=== PATIENT | female | born 1985 | race Caucasian/White ===

== ENCOUNTER 2018-04-01 14:43 | Inpatient (IN) ==
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
[2018-04-01] MEDS ORDERED: Aluminum/Magnesium/Simethacone Susp 30 ML UDC PO PRN (16:13)
[2018-04-01] MEDS ORDERED: Bisacodyl 10 MG Supp RECTAL PRN (16:13)
[2018-04-01 16:45] LABS: Amphetamine Screen,Urine Neg (Neg); Barbiturate Screen,Urine Neg (Neg); Cannabinoid Screen,Urine Neg (Neg); Cocaine Screen,Urine Neg (Neg)
[2018-04-01 16:49] LABS: Opiate Screen,Urine Neg (Neg)
[2018-04-01 19:43] LABS: Baso % (Auto) 0.2 % (0.0-2.0); Eos % (Auto) 0.2 % (0.0-4.0); Hematocrit 42.9 % (35.0-46.0); Hemoglobin 14.8 gm/dL (11.6-15.3); Lymph % (Auto) 44.5 % (9.0-44.0); Mean Corpuscular HGB Conc 34.5 % (32.0-36.0); Mean Corpuscular Hemoglobin 32.6 pg (27.0-34.0); Mean Corpuscular Volume 94.7 fL (80.0-100.0); Mono # (Auto) 0.4 th/mm3 (0.0-0.9); Mono % (Auto) 5.2 % (0.0-8.0); Neut # (Auto) 3.4 th/mm3 (1.8-7.7); Neut % (Auto) 49.9 % (16.0-70.0); Platelet Count 248 th/mm3 (150-450); Red Blood Count 4.53 mil/mm3 (4.00-5.30); Red Cell Distribution Width 12.7 % (11.6-17.2); White Blood Count 6.8 th/mm3 (4.0-11.0)
[2018-04-01 19:56] LABS: Alanine Aminotransferase 23 U/L (10-53); Anion Gap 10 meq/L (5-15); Aspartate Aminotransferase 13 U/L (15-37); Blood Urea Nitrogen 6 mg/dL (7-18); Calcium 9.5 mg/dL (8.5-10.1); Carbon Dioxide 26.4 meq/L (21.0-32.0); Chloride 105 meq/L (98-107); Glomerular Filtration Rate 85 mL/min (>89); Glucose,Random 86 mg/dL (74-106); Potassium 4.2 meq/L (3.5-5.1); Sodium 141 meq/L (136-145)
[2018-04-01 20:06] LABS: Alkaline Phosphatase 54 U/L (45-117); Thyroid Stimulating Hormone 0.383 uIU/mL (0.358-3.740); Total Protein 7.7 g/dL (6.4-8.2)
[2018-04-01] MEDS ORDERED: Senna/Docusate Sodium 8.6/50 MG Tablet PO SCH (21:00)
[2018-04-01] MEDS: Ibuprofen 600 MG Tablet PO SCH (22:15)
[2018-04-02] MEDS: Ibuprofen 600 MG Tablet PO SCH (06:26)
[2018-04-02] MEDS ORDERED: Aluminum/Magnesium/Simethacone Susp 30 ML UDC PO PRN (09:18)
[2018-04-02] MEDS ORDERED: Bisacodyl 10 MG Supp RECTAL PRN (09:18)
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
[2018-04-02 10:05] LABS: Calcium 8.9 mg/dL (8.5-10.1); Carbon Dioxide 22.8 meq/L (21.0-32.0); Potassium 3.7 meq/L (3.5-5.1)
[2018-04-02 10:08] LABS: Chol/HDL Ratio 3.1 Ratio; HDL Cholesterol 50.6 mg/dL (40.0-60.0)
[2018-04-02 10:12] LABS: Hemoglobin A1c 4.9 % (4.3-6.0)
[2018-04-02] MEDS ORDERED: Senna/Docusate Sodium 8.6/50 MG Tablet PO SCH (21:00)
== END 2018-04-02 10:40 | disposition home or self-care (01) ==
LOC: NEPJ 14:43 → NEDA 16:13 → H260 21:27
PROVIDERS: ADMIT Psychiatry & Neurology Psychiatry; ATTEND Psychiatry & Neurology Psychiatry